=== PATIENT | female | born 1970 | race Caucasian/White ===

== ENCOUNTER 2019-01-30 13:54 | Emergency (ER) | payer BC ==
[2019-01-30 14:46] VITALS: BP 111/75
--- NOTE | 2019-01-30 15:37 | UC ---
Complaint Male HPI - HPI Summary HPI Summary: Pt reports vaginal irritation and pain at outer vaginal area starting today. She is self tx'ing for vaginal d/c w/ monistat, has used one day of tx. reports unprotected sex x3 since September. - History of Current Complaint Chief Complaint: [facility] Stated Complaint: PERSONAL Time Seen by Provider: 01/30/19 15:06 Hx Obtained From: Patient Onset/Duration: Sudden Onset Pain Intensity: 2 Pain Scale Used: 0-10 Numeric Aggravating Factor(s): Nothing Alleviating Factor(s): Nothing - Allergies/Home Medications Allergies/Adverse Reactions: Allergies Allergy/AdvReac Type Severity Reaction Status Date / Time No Known Allergies Allergy Verified 01/30/19 14:47 Home Medications: Home Medications Cetirizine* [ZyrTEC 10 MG TAB*] 1 dose PO DAILY 01/30/19 [History Confirmed 01/10] Miconazole Nitrate [Monistat 3] 1 dose VAGINAL DAILY 01/30/19 [History Confirmed 01/30/19] PMH/Surg Hx/FS Hx/Imm Hx Previously Healthy: Yes - Surgical History Surgical History: None - Family History Known Family History: Positive: Non-Contributory - Social History Alcohol Use: Occasionally Substance Use Type: None Smoking Status (MU): Never Smoked Tobacco Review of Systems All Other Systems Reviewed And Are Negative: Yes Constitutional: Negative: Fever Skin: Negative: Rash Genitourinary: Positive: Vaginal/Penile Burning, Vaginal/Penile Itching, Ulceration/Lesion. Negative: Dysuria Physical Exam Triage Information Reviewed: Yes Appearance: Well-Appearing Vital Signs: Initial Vital Signs Temp 99.0 F 01/30/19 14:40 Pulse 66 01/30/19 14:40 Resp 12 01/30/19 14:40 BP 111/75 01/30/19 14:40 Pulse Ox 99 01/30/19 14:40 Vital Signs Reviewed: Yes Respiratory: Positive: No respiratory distress Pelvic Exam: Positive: Ulcers - at outer vulvar area and lower introitus, Other - vesicles Neurological: Positive: Alert Complaint Male Course/Dx - Course Course Of Treatment: Clinical dx of herpes. testing for sti at this point and will tx. vitals good. - Differential Dx/Diagnosis Provider Diagnosis: Genital herpes Discharge ED - Sign-Out/Discharge Documenting (check all that apply): Patient Departure All imaging exams completed and their final reports reviewed: No Studies - Discharge Plan Condition: Good Disposition: HOME Prescriptions: Valacyclovir HCl [Valacyclovir] 1,000 mg PO BID #14 tablet Patient Education Materials: Genital Herpes Simplex (ED) Referrals: Flaco Clarke MD [Primary Care Provider] - Additional Instructions: Please use condoms - Billing Disposition and Condition Condition: GOOD Disposition: Home
--- NOTE | 2019-01-30 18:45 | UC ---
- Progress Note Progress Note: PATIENT CALLED REQUESTING HER MEDICATION BE SENT TO THE [facility] IN [place] AND NOT IN [place]. SHE WAS ORIGINALLY GIVEN TOPICAL ABREVA FOR HER GENITAL HERPES. I CALLED THE PATIENT AND DISCUSSED WITH HER THAT THIS MEDICATION IS NOT THAT EFFECTIVE FOR GENITAL HERPES AND THAT AN ORAL MEDICATION WOULD BE BETTER. HAVE SENT VALACYCLOVIR 1000 MG TWICE DAILY FOR 7 DAYS TO [facility] [place]. ALL QUESTIONS WERE ANSWERED TO THE BEST OF MY ABILITY. PATIENT WILL FOLLOW UP WITH HER PCP. Course/Dx - Diagnoses Provider Diagnoses: Genital herpes Discharge ED - Sign-Out/Discharge Documenting (check all that apply): Post-Discharge Follow Up All imaging exams completed and their final reports reviewed: No Studies - Discharge Plan Condition: Good Disposition: HOME Prescriptions: Valacyclovir HCl [Valacyclovir] 1,000 mg PO BID #14 tablet Patient Education Materials: Genital Herpes Simplex (ED) Referrals: Flaco Clarke MD [Primary Care Provider] - Additional Instructions: Please use condoms - Billing Disposition and Condition Condition: GOOD Disposition: Home
[2019-01-31 13:32] LABS: HIV 4th Generation Nonreactive (Nonreactive)
--- NOTE | 2019-01-31 15:25 | UC ---
- Progress Note Progress Note: Please advise that HIV is non reactive. Course/Dx - Diagnoses Provider Diagnoses: Genital herpes Discharge ED - Sign-Out/Discharge Documenting (check all that apply): Patient Departure All imaging exams completed and their final reports reviewed: No Studies - Discharge Plan Condition: Good Disposition: HOME Prescriptions: Valacyclovir HCl [Valacyclovir] 1,000 mg PO BID #14 tablet Patient Education Materials: Genital Herpes Simplex (ED) Referrals: Flaco Clarke MD [Primary Care Provider] - Additional Instructions: Please use condoms - Billing Disposition and Condition Condition: GOOD Disposition: Home
[2019-02-01 12:37] LABS: Chlamydia trachomatis NAA Negative (Negative); Neisseria gonorrhoeae (GC) NAA Negative (Negative)
== END 2019-01-30 16:15 | disposition home or self-care (01) ==
LOC: UCEAST 13:54
DX: A60.00 Herpesviral infection of urogenital system, unspecified (principal)
CPT/HCPCS: 36415; 87389; 87491; 87591; 99212; G0463